=== PATIENT | male | born 1990 | race Asian ===

== ENCOUNTER 2019-12-13 19:40 | Outpatient (CLI) | payer OTHER | END 2019-12-13 19:41 | disposition home or self-care (01) | LOC: SC 19:40 | PROVIDERS: ATTEND Internal Medicine Pulmonary Disease | DX: G47.33 Obstructive sleep apnea (adult) (pediatric) (principal) | CPT/HCPCS: 95811 ==

== ENCOUNTER 2019-12-21 12:49 | Outpatient (CLI) | payer OTHER ==
--- NOTE | 2019-12-21 13:34 | SLEEP CARE CONSULTATION ---
Information from patient questionnaire entered by Lesvia Pastor. I have reviewed and concur with the information entered by Lesvia Pastor. This document represents the service I personally performed and the decisions made by me, Morenita Vasquez, RN, MSN, RAIL [employer]. History of Present Illness Service Date and Time: 12/21/2019 1249 Initial [place] Sleepiness Scale score: 16 (in 2020) Current [place] Sleepiness Scale score: 18 Additional HPI information: [employer] returns for follow up and results of the recently performed manual titration study. I explained the pathophysiology behind obstructive sleep apnea. We then spent quite a bit of time discussing different treatment options. For mild obstructive sleep apnea, surgery and oral appliance are alternatives to nasal CPAP therapy but in moderate or severe cases, nasal CPAP is the most effective and reliable treatment. I reviewed the impact of weight changes on sleep apnea and strongly recommended losing weight. After some discussion, the patient opted to go with the nasal CPAP therapy. Nasal autoCPAP set at [id number] will be ordered due to patient discomfort at higher pressure. I explained how CPAP machine works with sample devices [employer] Dreamstation and [employer] [id number] and what to expect when using the machine. Using CPAP every night in order to get used to it was emphasized. Patient advised to put CPAP mask on before getting into bed so as not to fall asleep without CPAP. To assist acclimation to CPAP use, it could also be used for a short time during day while reading or watching TV. The patient was instructed to call the CPAP supplier to discuss any mechanical problem that may occur. If the mask given is uncomfortable or is difficult to keep on through the night even with adjustment, contact the CPAP supplier as many will replace with another mask style if notified before 30 days. If snoring or perceives is not getting enough air or too much air from the machine, notify this office. [facility]AS patient education PAP tips reviewed and given to patient. Patient counseled not drink alcohol less than 4 hours before bedtime as it can increase snoring and apnea. Patient was cautioned about risks of drowsy driving until sleepiness symptoms resolve. AAS patient education on snoring and sleep apnea given and reviewed. Sleep Study - Results Polysomnography/Home Sleep Study results: The quality of the study is good. CPAP was initiated at 4 cmH2O and titrated up to CPAP at 17 cmH2O. CPAP at 17 cmH2O appeared to be optimal (AHI of 1.5 per hour on the pressure). There was supine sleep on the pressure. Oxygen saturation was minimally low. Lower CPAP settings allowed frequent residual respiratory events. The patient appeared to have tolerated positive airway pressure therapy very well. The patients sleep efficiency was normal. Except for mild sleep fragmentation, the sleep architecture was also normal. There was no significant periodic leg movement of sleep. Cardiac rhythm was normal sinus rhythm without significant arrhythmia. No abnormal behavior (parasomnia) observed during the night. CONCLUSIONS and RECOMMENDATIONS: 1. Obstructive sleep apnea-hypopnea (ICD-10 G47.33), mild (AHI was 11.1 at another facility), adequately controlled with high CPAP at 17 cmH2O. CPAP therapy is, therefore, recommended at the pressure setting. AutoCPAP set between 12 and 17 cmH20 is also appropriate. Mask used was a Respironics DreamWear full face mask size medium. With BMI of 29.0 Kg/M2, weight loss is also recommended. Electronically signed by: Roopa Miranda M.D. Diplomate, [place] [employer] Signed date and time: 12/14/2019 11:00 AM Allergies and Home Medications Known drug allergies: No Home medication list reviewed: No (no changes stated) Review of Systems Review of systems same as previous: Yes Physical Exam Blood Pressure: 104/70 Cuff size: long Heart Rate: 76 O2 Saturation: 98 Height: 5 ft 7 in Weight: 191 lb 12.8 oz Body Mass Index: 30.0 BMI Classification: Obese Impression and Plan 1. Obstructive Sleep Apnea-Hypopnea Syndrome, mild, with lowest oxygen saturation of 73% at another facility. Possibly this is the cause of the patients symptoms of unrefreshed sleep, and excessive daytime sleepiness. Since Patient felt the last pressure tried was too high and overwhelming, I will start him on autoCPAP of [id number]. Complianc e guidelines also reviewed. A copy of compliance guidelines will be given for reference at check out. Because the apnea is more severe supine, I instructed to avoid sleeping supine using pillow positioning until able to start CPAP use. Since he is moving in a few weeks, I will make sure staff have him set up with a company that can transfer with him to [place]. He is also to discuss a transfer to new sleep provider in [place] from his primary care so that he can set up a compliance follow up appointment. [facility] so [facility]. * Nasal auto CPAP therapy, pressure at 12-16 cm H2O. * Attempt to lose weight. * Avoid alcohol consumption near bedtime. * Avoid supine sleep until using CPAP. * The patient is again cautioned about driving until sleepiness completely resolves. * Follow up in one month after CPAP obtained at new sleep provider for compliance check. . Visit Type: In Office Time Spent with Patient (minutes): 25 Provider Statement: I spent 100% of the Face to Face Visit with the patient with greater than 50% spent counseling the patient and coordination of care.
[2019-12-21 17:47] VITALS: BP 104/70
== END 2019-12-21 12:50 | disposition home or self-care (01) ==
LOC: SC 12:49
PROVIDERS: ATTEND Nurse Practitioner Family
DX: G47.33 Obstructive sleep apnea (adult) (pediatric) (principal); E66.9 Obesity, unspecified; Z68.30 Body mass index [BMI] 30.0-30.9, adult
CPT/HCPCS: 99212; 99214